=== PATIENT | male | born 1940 | race Caucasian/White ===

== ENCOUNTER 2017-03-10 03:00 | Inpatient (IN) | payer OTHER ==
[~2017-03-10] VITALS: Ht 171.4 cm; Wt 99.5 kg
[~2017-03-10 03:00] MED LIST: Ascorbic Acid,Ester- PO; BABY ASPIRIN81 M1 PO; CENTRUM SILVER1 EAC3 PO; CHOLESTOFF PO; CRESTOR20 MG PO; Dulcolax PO; Ecotrin PO; LIDODERM 5% P1 PATCH TD; LISINOPRIL40 MG PO; PROTONIX40 MG PO; SENOKOT S,PE1 TABLET PO; THERAGRAN1 TABLET PO; VITAMIN D1000 UNIT PO; oxyCODONE PO
[2017-03-10 03:55] LABS: MCH 28.4 PG (29.0-34.0); MCHC 31.7 G/DL (30.0-36.0); MCV 89.5 FL (86-99); MEAN PLAT.VOLUME 9.4 uM^3 (9.0-12.4); PLATELET COUNT 216 K/uL (156-360); RBC DIS.WIDTH-CV 14.2 % (11.8-14.6); RBC DIS.WIDTH-SD 46.9 % (39-53); RED BLOOD COUNT 4.58 M/uL (4.00-5.50); WHITE BLOOD COUNT 7.9 K/uL (4.1-10.2)
[2017-03-10 04:05] LABS: POTASSIUM 4.4 mEq/L (3.7-5.4)
[2017-03-10 04:09] LABS: GLUCOSE 120 mg/dL (70-99)
[2017-03-10 04:10] LABS: TOTAL BILIRUBIN 0.4 mg/dL (0.0-1.0)
[2017-03-10 04:11] LABS: ALKALINE PHOSPHATASE 94 IU/L (3-129); ANION GAP 7 MEQ/L (2-14); GFR ESTIMATE (CALCULATED) > 59 mL/min/
[2017-03-10 04:12] LABS: UREA NITROGEN (BUN) 20 mg/dL (9-23)
[2017-03-10 04:36] LABS: CHLORIDE 99 mEq/L (99-109); SODIUM 136 mEq/L (136-147)
[2017-03-10 05:13] LABS: TROP-I INTERPRETATION NEGATIVE; TROPONIN-I 0.05 ng/mL (0.0-0.30)
[2017-03-10 07:30] VITALS: BP 102/56; BP 139/68
[2017-03-10 12:10] VITALS: BP 123/63
[2017-03-10] MEDS ORDERED: ATORVASTATIN CA40 MG PO (12:12)
[2017-03-10 15:10] VITALS: BP 117/59
[2017-03-10 16:59] LABS: POINT-OF-CARE METER ID UU14162508
[2017-03-10 19:40] VITALS: BP 120/57
[2017-03-10 22:01] LABS: POINT-OF-CARE METER ID UU14162508
[2017-03-10 23:30] VITALS: BP 130/59
[2017-03-11 03:50] VITALS: BP 122/64
[2017-03-11 07:00] LABS: POINT-OF-CARE METER ID UU14162508
[2017-03-11 07:25] VITALS: BP 114/58
[2017-03-11 07:27] LABS: EOSINOPHIL (%) 0.1 % (0-5); HEMATOCRIT 43.1 % (38.0-50.0); IMMATURE GRANULOCYTE (%) 0.4 % (0.0-0.7); INSTRUMENT ABS NEUTROPHIL CT 6.1 K/uL; LYMPHOCYTE COUNT 1.4 K/uL (1.0-2.8); MCH 28.1 PG (29.0-34.0); MCHC 31.8 G/DL (30.0-36.0); MCV 88.3 FL (86-99); MEAN PLAT.VOLUME 9.5 uM^3 (9.0-12.4); MONOCYTE (%) 4.3 % (3-12); MONOCYTE COUNT 0.3 K/uL (0-0.8); NEUTROPHIL (%) 77.7 % (45-76); NEUTROPHIL COUNT 6.1 K/uL (1.8-6.4); PLATELET COUNT 243 K/uL (156-360); RBC DIS.WIDTH-CV 14.2 % (11.8-14.6); RBC DIS.WIDTH-SD 45.7 % (39-53); RED BLOOD COUNT 4.88 M/uL (4.00-5.50); WHITE BLOOD COUNT 7.8 K/uL (4.1-10.2)
[2017-03-11 07:51] LABS: TROP-I INTERPRETATION NEGATIVE; TROPONIN-I 0.04 ng/mL (0.0-0.30)
[2017-03-11 07:54] LABS: ANION GAP 9 MEQ/L (2-14); CHLORIDE 90 MEQ/L (99-109); GFR ESTIMATE (CALCULATED) > 59 mL/min/; GLUCOSE 151 mg/dL (70-99); POTASSIUM 4.9 MEQ/L (3.7-5.4); SAMPLE HEMOLYSIS CHECK 0; SAMPLE ICTERIC CHECK 0; SAMPLE LIPEMIA CHECK 0; SODIUM 134 MEQ/L (136-147); UREA NITROGEN (BUN) 27 mg/dL (9-23)
[2017-03-11 11:20] VITALS: BP 118/68
[2017-03-11 11:25] VITALS: BP 111/56
[2017-03-11 11:36] LABS: POINT-OF-CARE METER ID UU14162508
[2017-03-11 16:26] LABS: POINT-OF-CARE METER ID UU14314084
[2017-03-11 17:23] VITALS: BP 129/64
[2017-03-11 20:18] VITALS: BP 110/52
[2017-03-11 21:33] LABS: POINT-OF-CARE METER ID UU14314084
[2017-03-12] VITALS (7 sets, daily range): BP systolic 91–128; BP diastolic 51–74
[2017-03-12 06:17] LABS: POINT-OF-CARE METER ID UU14314084
[2017-03-12 08:21] LABS: ANION GAP 8 MEQ/L (2-14); CHLORIDE 94 MEQ/L (99-109); MAGNESIUM 1.9 mg/dl (1.3-2.7); POTASSIUM 4.4 MEQ/L (3.7-5.4); SAMPLE HEMOLYSIS CHECK 0; SAMPLE ICTERIC CHECK 0; SAMPLE LIPEMIA CHECK 0; SODIUM 137 MEQ/L (136-147)
[2017-03-12 08:32] LABS: GFR ESTIMATE (CALCULATED) > 59 mL/min/; UREA NITROGEN (BUN) 40 mg/dL (9-23)
[2017-03-12 08:33] LABS: GLUCOSE 104 mg/dL (70-99)
[2017-03-12 09:30] LABS: Estimated Average Glucose 157 mg/dL (70-123); HEMOGLOBIN A1c (GLYCOHEMOGLOB) 7.1 % HGB (Below 5.7)
[2017-03-12 11:34] LABS: POINT-OF-CARE METER ID UU14162508
[2017-03-12 16:01] LABS: POINT-OF-CARE METER ID UU14162508
[2017-03-12 21:37] LABS: POINT-OF-CARE METER ID UU14314084
[2017-03-13 03:16] VITALS: BP 116/59
[2017-03-13 06:20] LABS: POINT-OF-CARE METER ID UU14162508
[2017-03-13 07:14] LABS: EOSINOPHIL (%) 0.8 % (0-5); EOSINOPHIL COUNT 0.1 K/uL (0-0.3); HEMATOCRIT 41.3 % (38.0-50.0); IMMATURE GRANULOCYTE (%) 0.3 % (0.0-0.7); INSTRUMENT ABS NEUTROPHIL CT 5.7 K/uL; MCH 27.6 PG (29.0-34.0); MCHC 31.5 G/DL (30.0-36.0); MCV 87.7 FL (86-99); MEAN PLAT.VOLUME 9.6 uM^3 (9.0-12.4); MONOCYTE (%) 9.8 % (3-12); NEUTROPHIL COUNT 5.7 K/uL (1.8-6.4); PLATELET COUNT 256 K/uL (156-360); RBC DIS.WIDTH-CV 14.4 % (11.8-14.6); RED BLOOD COUNT 4.71 M/uL (4.00-5.50); WHITE BLOOD COUNT 9.7 K/uL (4.1-10.2)
[2017-03-13 07:54] LABS: ANION GAP 9 MEQ/L (2-14); CHLORIDE 93 MEQ/L (99-109); GFR ESTIMATE (CALCULATED) > 59 mL/min/; GLUCOSE 89 mg/dL (70-99); POTASSIUM 4.2 MEQ/L (3.7-5.4); SAMPLE HEMOLYSIS CHECK 0; SAMPLE ICTERIC CHECK 0; SAMPLE LIPEMIA CHECK 0; SODIUM 137 MEQ/L (136-147); UREA NITROGEN (BUN) 55 mg/dL (9-23)
[2017-03-13 07:55] VITALS: BP 109/55
[2017-03-13 11:40] VITALS: BP 96/48
[2017-03-13 11:45] VITALS: BP 96/45
[2017-03-13 11:56] LABS: POINT-OF-CARE METER ID UU14162508; POINT-OF-CARE USER ID PUTDRM
[2017-03-13] MEDS ORDERED: CARVEDILOL6.25 MG PO (13:24)
[2017-03-13] MEDS ORDERED: FUROSEMIDE80 MG PO (13:24)
[2017-03-13] MEDS ORDERED: METFORMIN HCL500 MG PO (13:24)
[2017-03-13] MEDS ORDERED: SPIRIVA RESPIMAT4 GM IH (13:24)
== END 2017-03-13 14:54 | disposition home or self-care (01) | DRG 291 ==
LOC: EME 03:00 → EDOF 05:42 → 2EAST 05:42 → ENRESERV 05:45 → 2EAST 07:52
PROVIDERS: Hospitalist; Internal Medicine; Internal Medicine Cardiovascular Disease; Physician Assistant; Student in an Organized Health Care Education/Training Program
DX: I11.0 Hypertensive heart disease with heart failure (principal); J96.01 Acute respiratory failure with hypoxia; I50.20 Unspecified systolic (congestive) heart failure; I42.0 Dilated cardiomyopathy; E11.65 Type 2 diabetes mellitus with hyperglycemia; J20.9 Acute bronchitis, unspecified; J44.0 Chronic obstructive pulmonary disease with (acute) lower respiratory infection; E78.5 Hyperlipidemia, unspecified; F10.10 Alcohol abuse, uncomplicated; E66.9 Obesity, unspecified; Z68.33 Body mass index [BMI] 33.0-33.9, adult; Z79.82 Long term (current) use of aspirin; Z83.3 Family history of diabetes mellitus; Z91.19 Patient's noncompliance with other medical treatment and regimen; Z87.891 Personal history of nicotine dependence
CPT/HCPCS: 71010; 71020; 71275; 80048; 80053; 82948; 83036; 83605; 83735; 83880; 84100; 84484; 85025; 85027; 87040; 93005; 93306; 93971; 94640; 94640 76; 94760; 94799; 99202; 99281; 99285; J1644; J1815; J1940; J7040; J7512